=== PATIENT | male | born 1965 | race Caucasian/White ===

== ENCOUNTER 2016-11-09 18:32 | Observation (INO) | payer OTHER, MEDICAID ==
[~2016-11-09] VITALS: Ht 182.9 cm; Wt 99.7 kg
--- NOTE | 2016-11-09 18:31 | ED.REPORT ---
HPI-Chest Pain 40 and Over Date of Service Nov 09, 2016 ED Provider: Narendra Mckeon DO This is a 51 year old paraplegic male presenting to the emergency department via EMS complaining of resolved chest pain that began 8 hours ago. Pt was at [employer] when he developed sudden-onset diffuse chest pressure associated with lightheadedness. Denies SOB, change LOC, cough, nausea, vomiting , or radiation of pain. Episode resolved after 10-15 minutes and has not returned since. Pt sent from PCP at [facility] [place]. Nursing Notes Stated Complaint: CHEST PAIN Nursing Notes Reviewed: Yes Allergies: Coded Allergies: No Known Allergies (Unverified , 11/09/16) Scheduled Cyclobenzaprine (Cyclobenzaprine) 10 Mg Tablet 10 MG PO BID Docusate Sodium (Colace) 100 Mg Capsule 200 MG PO QAM Famotidine (Famotidine) 20 Mg Tablet 20 MG PO QAM Finasteride (Finasteride) 5 Mg Tablet 5 MG PO QAM Gabapentin (Gabapentin) 600 Mg Tablet 1,200 MG PO BID 8AM & MIDNIGHT Gabapentin (Gabapentin) 600 Mg Tablet 600 MG PO DAILY @ 4PM Mirtazapine (Mirtazapine) 45 Mg Tablet 45 MG PO HS Multivitamin (Multi Vitamin Daily) 1 Each Tablet 1 EACH PO DAILY Tamsulosin ER (Tamsulosin ER) 0.4 Mg Cap.er.24h 0.4 MG PO HS Venlafaxine ER (Venlafaxine ER) 150 Mg Tab.er.24 150 MG PO QAM Scheduled PRN Ibuprofen (Ibuprofen) 400 Mg Tablet 400 MG PO Q4 PRN PRN For Pain General Time Seen by MD: 18:29 Chief Complaint Chest pain Hx Obtained From: Patient Arrived By: Ambulance Sudden in Onset?: Yes Onset Occurred: 5 - 8 hours ago Symptom Duration: Since onset Severity: Current: No pain currently Severity: Maximum: Mild Pertinent Negative: Pt denies other symptoms Recent Healthcare: No recent doctor visit, No recent hospitalization Similar Sx Previous: No Past Medical History Past Medical History Paraplegia Smoking History Former Smoker Social History Alcohol Use: Denies alcohol use Drug Use: Denies drug use Ambulatory Status Walker Review of Systems Constitutional: Denies: Chills, Fever Respiratory: Denies: Non-productive cough, Shortness of breath Cardiovascular: Reports: Chest pain GI: Denies: Abdominal pain, Nausea, Vomiting Neurologic: Reports: Lightheaded, Denies: Change LOC, Headache Complete sys rev & neg: except as marked. Physical Exam Initial Vital Signs Vital Signs (First) Date Time Temp Pulse Resp B/P Pulse Ox O2 Delivery O2 Flow Rate FiO2 11/09/16 18:35 36.8 80 15 146/98 98 Room Air - Initial VS: Reviewed Head / Eyes: Atraumatic, Normocephalic, PERRL ENT: Mucous membranes moist Neck: Supple, Non-tender, Full range of motion Skin: Warm, Dry, No cyanosis Neurologic: Alert, Oriented, Nonfocal Psychiatric: Mood/affect normal, Behavior normal, Normal thought content General/Constitutional: Awake, Alert Respiratory / Chest: Breath sounds NL, Breath sounds = bilat, No respiratory distress, No rales, No rhonchi, No wheezing, No stridor, No chest tenderness Cardiovascular: Heart rate NL, Regular rhythm, Heart sounds NL, No murmurs, Peripheral circulation NL, Pulses = bilaterally, No gross BP differential Abdomen: Soft, Non-tender, McBurney's non-tender, No guarding, No rebound, BS normoactive, No distention, No hernia, No palpable mass Lower Extremity / Pelvis / MS: Vascular intact Chronic lower extremity weakness Interpretation & Diagnostics Lab Results Interpretation Result Diagram: 11/09/16183611/09/161836 Test 11/09/16 18:37 11/09/16 19:29 11/09/16 20:12 White Blood Count 8.7th/mm3 (3.8-10.1) Red Blood Count 5.05mil/mm3 (4.40-5.80) Hemoglobin 15.8g/dL (13.8-17.2) Hematocrit 44.7% (41.0-50.0) Mean Corpuscular Volume 88.5fL (81-100) Mean Corpuscular Hemoglobin 31.3pg (27.0-35.0) Mean Corpuscular Hemoglobin Concent 35.3% (32.0-37.0) Red Cell Distribution Width 14.2% (12.3-15.4) Platelet Count 183bil/L (150-400) Neutrophils (%) (Auto) 67.0% (40-74) Lymphocytes (%) (Auto) 21.6% (14-46) Monocytes (%) (Auto) 9.2% (4-12) Eosinophils (%) (Auto) 1.4% (0-5) Basophils (%) (Auto) 0.2% (0-3) Prothrombin Time 10.3sec (8.1-12.5) Prothromb Time International Ratio 0.96ratio D-Dimer < 0.50mg/L FEU (<0.50) Sodium Level 136mEq/L (134-144) Potassium Level 4.2mEq/L (3.5-5.2) Chloride Level 98mEq/L (97-108) Carbon Dioxide Level 24mmol/L (18-29) Blood Urea Nitrogen 24mg/dL (6-24) Creatinine 0.81mg/dL (0.76-1.27) Estimat Glomerular Filtration Rate 107mL/min (>59) Glucose Level 93mg/dL (60-99) Calcium Level 9.4mg/dL (8.5-10.1) Total Bilirubin 0.6mg/dL (0.0-1.2) Aspartate Amino Transf (AST/SGOT) 42U/L (0-50) Alanine Aminotransferase (ALT/SGPT) 63U/L (0-44) Alkaline Phosphatase 118U/L (25-150) Total Protein 8.0g/dL (6.4-8.4) Albumin 4.8g/dL (3.4-5.0) Hold Purple Top Tube Received (Received) Hold Blue Top Tube Received (Received) Hold Red Top Tube Received (Received) Hold [place] Top Tube Received (Received) Hold Muniz Top Tube Received (Received) Magnesium Level 2.1mg/dL (1.6-2.6) Total Creatine Kinase 615U/L (21-232) Creatine Kinase MB 13.3ng/mL (0.0-10.4) Creatine Kinase MB % 2.2% (0.0-5.0) Troponin T 0.017ug/L (0.0-0.011) ECG Interpretation ECG Interpretation: NSR at a rate of 72 Inferior infarct, q-waves inferiorly Time: 19:22 Interpreted by: ED physician X-Ray Chest Interpretation Chest Xray Interpretation: IMPRESSION: No acute cardiopulmonary disease. Dictated by: Heide Peters M.D. on 11/09/2016 at 19:26 Approved by: Heide Peters M.D. on 11/09/2016 at 19:27 Re-Eval/Medical Decision Med Decision/Clinical Course 51-year-old male presents for evaluation of chest pain. He had 15 minutes of chest pain earlier today. The pain is long since resolved. In my evaluation he had no complaints whatsoever. His examination was benign. He did have very mild hypertension. EKG showed Q waves inferiorly. No acute ST elevation or depression. First troponin and CPK and MB were elevated. We medicated with IV heparin, aspirin and topical nitrates. Consulted with cardiology and the recommendation is to transfer and this troponin raises beyond the indeterminate range considered cardiology consultation for microbiology laboratory manager. If troponin remains indeterminant then he can safely have a stress test. Case discussed with our hospitalist in this gentleman was admitted to the PCU in stable condition pain free Consultation #1: Referral / Consult Name: Charlene Olivo MD Consulted With: Cardiology Call Returned at: 19:35 Medical Librarian: Will see patient, Agrees with eval, Agrees with plan Consultation #2: Referral / Consult Name: Francois Deleon MD Consulted With: Hospitalist Call Returned at: 19:58 Medical Librarian: Accepts admit Counseled Regarding: Diagnosis, Lab results, Need for follow-up, Need for admission Discharge & Departure Primary Impression: Chest pain Chest pain type: unspecified Qualified Code: R07.9 - Chest pain, unspecified Additional Impression: Elevated troponin Disposition: ADMITTED TO HOSPITAL Discharge Condition All VS Reviewed: Yes Condition: Stable Referrals: Nieves Natarajan MD (PCP) Scribe Attestation Portions of this note were transcribed by Radha Loja. I, Dr. Mckeon personally performed the history, physical exam and medical decision-making; I reviewed and confirmed the accuracy of the information in the transcribed note. Signed by: Radha Loja. 11/09/2016, 03:00. Narendra Mckeon DO Nov 09, 2016 18:31 RADHA LOJA Nov 09, 2016 18:39
[~2016-11-09 18:32] MED LIST: 0.9% Sodium Chloride 1,000 ML IV ONE; CYCL10TA9 PO; DOCU-41 PO; FAMO20TA4 PO; FINA5TAB9 PO; GABA600T2 PO; HYDR2TAB28 PO; IBUP800T28 PO; MIRT15TA6 PO; MULT-1018 PO; OXYC5TAB72 PO; VENL150T3 PO
[2016-11-09 18:35] VITALS: BP 146/98; PULSE 80; RESP 15; O2SAT 98
[2016-11-09 18:43] LABS: BASOPHILS % (AUTO) 0.2 % (0-3); EOSINOPHILS % (AUTO) 1.4 % (0-5); MONOCYTES % (AUTO) 9.2 % (4-12); Mean Corpuscular Hemoglobin 31.3 pg (27.0-35.0); Mean Corpuscular Volume 88.5 fL (81-100); Platelet Count 183 bil/L (150-400)
[2016-11-09 19:03] LABS: D-Dimer < 0.50 mg/L FEU (<0.50); INR 0.96 ratio
[2016-11-09 19:05] LABS: TROPONIN T 0.02 ug/L (0.0-0.011)
[2016-11-09] MEDS ORDERED: Nitroglycerin 2% 1 Gm Ointment TOPICAL ONE (19:25)
--- NOTE | 2016-11-09 19:28 | DRSVH ---
PROCEDURE: X-RAY CHEST ONE VIEW, PORTABLE ([id number]) INDICATIONS: chest pain TECHNIQUE: One view of the chest was acquired. COMPARISON: None. FINDINGS: Surgical changes and devices: Lumbar spine fusion. Lungs and pleura: No pleural effusions or pneumothorax. Lungs are clear. Mediastinum: Mediastinal contours appear normal. Heart size is normal. Bones and chest wall: No suspicious bony lesions. Overlying soft tissues appear unremarkable. IMPRESSION: No acute cardiopulmonary disease. Dictated by: Heide Peters M.D. on 11/09/2016 at 19:26 Approved by: Heide Peters M.D. on 11/09/2016 at 19:27
[2016-11-09] MEDS ORDERED: Heparin 25K Unit/500mL 0.45 NS 25,000 UNIT in IV Premix 1 EACH IV SCH (19:40)
[2016-11-09] MEDS ORDERED: Heparin Initial Bolus IVPUSH ONE (19:50)
[2016-11-09] MEDS ORDERED: Polyethylene Glycol (PEG) 17 Gm Powder PO PRN (20:10)
[2016-11-09] MEDS ORDERED: Alum-Mag Hydrox-Simeth 30 mL Suspension PO PRN (20:10)
[2016-11-09] MEDS ORDERED: Senna-Docusate 8.6-50 mg Tablet PO PRN (20:10)
[2016-11-09] MEDS ORDERED: Ondansetron 2 mg/mL 2 mL Inj IVPUSH PRN (20:10)
[2016-11-09] MEDS ORDERED: Atropine 1 mg/10 mL (Code) Syringe IVPUSH PRN (20:10)
[2016-11-09] MEDS ORDERED: GABA600T2 PO (20:22)
[2016-11-09] MEDS ORDERED: IBUP400T22 PO (20:22)
[2016-11-09] MEDS ORDERED: TAMS0.4C98 PO (20:22)
[2016-11-09] MEDS ORDERED: MIRT45TA5 PO (20:24)
[2016-11-09] MEDS ORDERED: TAMS0.4C29 PO (20:24)
[2016-11-09 20:51] LABS: TROPONIN T 0.017 ug/L (0.0-0.011)
[2016-11-09 20:56] LABS: Magnesium 2.1 mg/dL (1.6-2.6)
[2016-11-09] MEDS: 0.9% Sodium Chloride 1,000 ML IV SCH (20:58)
[2016-11-09 23:07] VITALS: BP 123/80; PULSE 80; RESP 20; O2SAT 97
[2016-11-09 23:10] VITALS: BP 115/67; PULSE 77; RESP 14; O2SAT 97
[2016-11-10] VITALS (14 sets, daily range): BP systolic 98–134; BP diastolic 58–79; PULSE 65–82; RESP 15–19; O2SAT 94–98
--- NOTE | 2016-11-10 00:25 | PCM.HPMED ---
Subjective Date of Service Nov 09, 2016 Primary Provider: Admitting Physician: Primary Care Physician: Nieves Natarajan MD Attending Physician: Admit Status: From the Emergency Department, 23-Hour Observation, [facility] Telemetry Chief Complaint: Chest pain History of Present Illness: Mj Hood is a 51 year old paraplegic male with BPH, Depression presenting to the emergency department via EMS complaining of resolved chest pain that began 8 hours ago. Pt was at [employer] when he developed sudden-onset, mid sternal chest pressure associated with lightheadedness. Denies any associated symptoms like diaphoresis, nausea, vomiting. Episode resolved after 10-15 minutes and has not returned since. No similar episode prior. 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 He is able to walk but with a walker, right foot is unstable. Case discussed with Dr Mckeon. EKG showed no ischemia. Due to persistent chest pain, Heparin drip was initiated. Dr Mckeon spoke to Dr Olivo who recommended admission. Review of Systems: Pertinent positives as noted in HPI. All other systems were reviewed and are negative Allergies Coded Allergies: No Known Allergies (Unverified , 11/09/16) Home Medications From [facility], not yet confirmed Mj Vogel [id number] 1965 07/20/2016 01:20 PM Page: 09/20 cyclobenzaprine 10 mg tablet take 1 tablet by oral route 2 times every day docusate sodium 100 mg capsule take 1 capsule by oral route 2 times every day at bedtime as needed famotidine 20 mg tablet take 1 tablet by oral route every day finasteride 5 mg tablet take 1 tablet by oral route every day gabapentin 600 mg tablet 1 tab PO 5 times daily hydromorphone 2 mg tablet take 1 tablet by oral route every 4 - 6 hours as needed ibuprofen 800 mg tablet take 1 tablet by oral route 3 times every day with food mirtazapine 15 mg tablet take 1.5 tablet by oral route every day multivitamin tablet take 1 tablet by oral route every day with food oxycodone 5 mg tablet take 1 tablet by oral route once daily tamsulosin 0.4 mg capsule take 1 Capsule by oral route every day at night venlafaxine ER 150 mg tablet,extended release 24 hr take 1 tablet by oral route every day in the morning at the same time each day with food PMH BPH Depression Incomplete paraplegia after falling accident . Surgical History Right Achilles tendon repair Family History No family history of premature coronary disease Social History Hx Alcohol Use: No (QUIT 1983) Hx Substance Use: No Hx Tobacco Use: Yes Smoking Status: Former Smoker Living Arrangement: with Family Exam Vital Signs Vital Sign - Last Date Time Temp Pulse Resp B/P Pulse Ox O2 Delivery O2 Flow Rate FiO2 11/09/16 18:35 36.8 80 15 146/98 98 Room Air Exam General: Alert, Oriented X3, Cooperative, No acute Distress Eyes: PERRLA, Scleral Anicteric Mouth: Mouth Normal, Mucous Membranes Moist/[place] Neck: Supple, no Thyromegaly, trachea central. Chest & Lungs: Clear to auscultation & percussion, No adventitious breath sounds, no crackles, no wheeze Cardiovascular: Normal S1, Normal S2, No Murmurs/Rubs/Gallops, Regular Rate/ Rhythm, (No JVD, no peripheral edema) Pulses: Radial (present and equal), Dorsalis Pedi (present and equal) Abdomen: Soft, Non-tender, Non-distended, Normoactive bowel tones. Musculoskeletal: Unremarkable. Normal range of motion, no swollen or erythematous joints Extremities: No edema, no cyanosis, no clubbing. Skin: No rashes. Warm and dry, no erythematous areas Neurological: Grossly neurologically intact, Normal Speech, Sensation Intact Lymphatic: Lymph nodes Cervical and Axillary not palpable. Lab and Diagnostics Labs Laboratory Tests Test 11/09/16 18:37 11/09/16 19:29 11/09/16 20:12 White Blood Count 8.7th/mm3 (3.8-10.1) Red Blood Count 5.05mil/mm3 (4.40-5.80) Hemoglobin 15.8g/dL (13.8-17.2) Hematocrit 44.7% (41.0-50.0) Mean Corpuscular Volume 88.5fL (81-100) Mean Corpuscular Hemoglobin 31.3pg (27.0-35.0) Mean Corpuscular Hemoglobin Concent 35.3% (32.0-37.0) Red Cell Distribution Width 14.2% (12.3-15.4) Platelet Count 183bil/L (150-400) Neutrophils (%) (Auto) 67.0% (40-74) Lymphocytes (%) (Auto) 21.6% (14-46) Monocytes (%) (Auto) 9.2% (4-12) Eosinophils (%) (Auto) 1.4% (0-5) Basophils (%) (Auto) 0.2% (0-3) Prothrombin Time 10.3sec (8.1-12.5) Prothromb Time International Ratio 0.96ratio D-Dimer < 0.50mg/L FEU (<0.50) Sodium Level 136mEq/L (134-144) Potassium Level 4.2mEq/L (3.5-5.2) Chloride Level 98mEq/L (97-108) Carbon Dioxide Level 24mmol/L (18-29) Blood Urea Nitrogen 24mg/dL (6-24) Creatinine 0.81mg/dL (0.76-1.27) Estimat Glomerular Filtration Rate 107mL/min (>59) Glucose Level 93mg/dL (60-99) Calcium Level 9.4mg/dL (8.5-10.1) Magnesium Level 2.0mg/dL (1.6-2.6) Total Bilirubin 0.6mg/dL (0.0-1.2) Aspartate Amino Transf (AST/SGOT) 42U/L (0-50) Alanine Aminotransferase (ALT/SGPT) 63U/L (0-44) Alkaline Phosphatase 118U/L (25-150) Troponin T 0.020ug/L (0.0-0.011) Total Protein 8.0g/dL (6.4-8.4) Albumin 4.8g/dL (3.4-5.0) Hold Purple Top Tube Received (Received) Hold Blue Top Tube Received (Received) Hold Red Top Tube Received (Received) Hold [place] Top Tube Received (Received) Hold Muniz Top Tube Received (Received) Result Diagram: 11/09/16183611/09/[id number] X-Rays, CTs and MRIs X-RAY CHEST ONE VIEW, PORTABLE 11/09 IMPRESSION: No acute cardiopulmonary disease. Dictated by: Heide Peters M.D. on 11/09/2016 at 19:26 Approved by: Heide Peters M.D. on 11/09/2016 at 19:27 Assessment & Plan Mj Hood is a 51 year old paraplegic male with BPH, Depression presenting to the emergency department via EMS complaining of chest pain 1. Acute Chest pain with possible Unstable Angina. Present on admission Slightly elevated troponin makes NSTEMI possible but will need to trend. Risk factors for Acute coronary syndrome includes age, sex, previous smoker Differential diagnosis includes Pulmonary embolism (D dimer negative), GERD, Musculoskeletal pain - trending cardiac biomarkers - monitor on telemetry - complete echo - anticoagulation with Heparin (cardiac protocol) - antiplatelet therapy with Aspirin and Plavix (300 mg loading then 75 mg daily) - if troponin negative will get stress test - if troponin positive then possible cardiac catheterization - Cardiology consultation in the morning 2. Benign Prostatic Hypertrophy. Chronic No urinary symptoms - continuing Flomax and Finasteride 3. Depression Mood stable - continuing Venlafaxine and Mirtazepine 4. Paraplegia, incomplete, chronic - continuing Gabapentin as scheduled - Acetaminophen as needed for mild pain/fever/headache - Bowel regimen as needed - Antiemetic as needed Patient is admitted under observation status with expected length of stay less than 2 midnights due to severity of presenting symptoms, risk of adverse event, and complexity of treatment plan. . Resuscitation Status: CPR: Attempt Resuscitation Francois Deleon MD Nov 09, 2016 20:10
[2016-11-10] MEDS: Sodium Chloride LOK Flush 10 mL Syringe IVFLUSH SCH ×3 (00:30→16:29)
[2016-11-10 02:24] LABS: TROPONIN T 0.04 ug/L (0.0-0.011)
[2016-11-10] MEDS: Heparin 5,000 Unit/mL Inj IVPUSH PRN ×2 (03:04→10:11)
--- NOTE | 2016-11-10 06:32 | NUR ---
Admit Admitted to 3017 from ED via stretcher. Able to ambulate on arrival with personal walker, SBA and right ankle splint in place. Slow steady gait noted. Per patient no motor movement in left foot but full sensation. Tele SR w/o c/o CP. RA w/o SOB. Tolerating PO intake w/o n/v. NPO @ midnight per orders. NS @ 80ml/hr and heparin gtt infusing per orders. Personal belongings at bedside per patient request. Oriented to call light use with return demonstration.
[2016-11-10 07:06] LABS: BASOPHILS % (AUTO) 0.3 % (0-3); EOSINOPHILS % (AUTO) 2.2 % (0-5); Mean Corpuscular Hemoglobin 31.3 pg (27.0-35.0); Mean Corpuscular Volume 89.7 fL (81-100); NEUTROPHILS % (AUTO) 54.9 % (40-74); Platelet Count 146 bil/L (150-400)
[2016-11-10] MEDS ORDERED: Venlafaxine XR 75 mg ER24 Capsule PO SCH (08:30)
[2016-11-10] MEDS: 0.9% Sodium Chloride 1,000 ML IV SCH (08:54)
--- NOTE | 2016-11-10 10:00 | CONS ---
[address] [address] CONSULTATION REPORT PATIENT: JAILENE SMITH : 1965 MR#: [id number] ADMIT: 11/09/2016 JOB ID: [id number] DATE OF SERVICE: 11/10/2016 CARDIOLOGY CONSULTATION: REASON FOR CONSULT: For the evaluation of chest pain, abnormal troponin. CHIEF COMPLAINT: Chest pain. PRESENT HISTORY: This 51-year-old pleasant male who has an incomplete paraplegia due to ladder fall, history of depression, BPH, ex-smoker got admitted through the emergency department because of above-mentioned chief complaint. According to the patient, yesterday morning he was at [employer] walking with the help of walker and felt chest tightness. It was associated with lightheadedness without any nausea, vomiting, diaphoresis or significant shortness of breath. It lasted about 10-15 minutes. It was not very intense. No radiation. It subsided by itself. Then, he went to see he is physiotherapist. He continued to have lightheadedness. He was advised to talk with PCP where he was seen and EKG was done which was abnormal. Hence he was sent to the ED. In the hospital, his troponin is abnormal. Hence Cardiology consult was sought. At present, he is lying on bed. He is not having any active chest pain or shortness of breath or PND, orthopnea or bleeding or stroke-like symptoms. The patient denies previous history of myocardial infarction, congestive heart failure, rheumatic heart disease or congenital heart disease or family history of premature coronary artery disease. He is not sure about high blood pressure or hyperlipidemia. However, when he was at his physiotherapist his blood pressure was 190/110. The patient denies any fever, cough, expectoration or claudication. PAST MEDICAL HISTORY: 1. History of incomplete paraplegia after a falling accident. 2. Depression. 3. BPH. 4. Recently found elevated blood pressure. PAST SURGICAL HISTORY: Right Achilles tendon repair. FAMILY HISTORY: No family history of premature coronary artery disease. SOCIAL HISTORY: Denies any alcohol abuse. He is an ex-smoker but currently is not smoking. ALLERGIES: Denies any allergies. MEDICATIONS AT HOME: 1. Cyclobenzaprine 10 mg 2 times a day. 2. Famotidine 20 mg daily. 3. Finasteride 5 mg daily. 4. Gabapentin 600 mg 1 tablet five times daily. 5. Hydromorphone 2 mg every 4-6 hours as needed. 6. Ibuprofen 800 mg three times a day. 7. Mirtazapine 50 mg 1-1/2 tablets daily. 8. Multivitamin. 9. Oxycodone 5 mg daily. 10. Venlafaxine ER 150 mg daily. 11. Tamsulosin 0.4 mg at night. REVIEW OF SYSTEMS: Ten point review of systems were obtained and negative except as stated above. PHYSICAL EXAMINATION: His blood pressure 98/58 to 146/98, heart rate 78, respiratory rate 18, oxygen saturation 95% and no significant anemia, jaundice. Neck: No apparent JVP or carotid bruit. Chest: No obvious crepitation or rhonchi. CVS: S1, S2 normal. No S3, no S4. No significant murmur. Abdomen: No pulsatile mass. No obvious hepatosplenomegaly. Extremities: No significant pedal edema. MARKETING GRAPHICS SPECIALIST: The patient has weakness in both lower extremities as well as there is a contracture of the right foot. Vascular: No evidence of critical limb ischemia. LABORATORIES: Sodium 140, potassium 4.1, BUN 21, creatinine 0.82. Magnesium 2.1. CPK 615 and repeat 463. MB 13.3, repeat 9.3. Troponin T 0.017 and 0.040. Triglycerides 198, total cholesterol 194, LDL 120, HDL 34, hemoglobin 13.3 upon admission. Hemoglobin 15.8. The patient receiving fluid. Platelets from 183-146. INR 0.96 and D-dimer less than 0.5. X-ray chest: No acute cardiopulmonary disease. EKG on November 14, 2016 at 7:13 p.m. revealed sinus rhythm with QRS complexes L3, aVF, poor R-wave progression and nonspecific ST-T changes. QTc 391 msec. Repeat EKG this morning, no new significant ST-T changes. ASSESSMENT AND PLAN: Acute coronary syndrome with likely non ST elevation myocardial infarction with increased and fall in CPK MB as well as rising troponin. On EKG there are QS complexes in inferior leads with elevated blood pressure, history of incomplete paraplegia and other problems as stated above. At present, he is chest pain free. Clinically, he appears compensated. He is not in heart failure. His QTc is not prolonged. Discussed with the pt. further cardiac workup including left heart catheterization in anticipation of revascularization. Benefits and risks of left heart catheterization which include, but not limited to, risk of bleeding, groin complication, myocardial infarction, stroke, , renal insufficiency, and peripheral vascular complication, etc. in detail discussed with the patient. He verbalizes understanding. Meanwhile, we will recommend continuation of medical treatment with dual antiplatelet therapy, anticoagulation, tolerable dose of beta toya, high intensity statin as well as consideration of RUBINA inhibitor if blood pressure permits. Get echocardiogram as well. He denies any active bleeding. Repeat his electrolytes and CBC. Further plan will be based on the result of above-mentioned diagnostic tests and his hospital course. Discussed the plan with the patient and hospitalist team. They agreed and concurred. Thanks for the cardiology consult. RUIZ
[2016-11-10] MEDS ORDERED: diphenhydrAMINE 25 mg Capsule PO ONE (10:30)
--- NOTE | 2016-11-10 10:52 | NUR ---
Social Work: Screening Data: Pt is a 51 y/o male admitted for chest pain/elevated trop. Pt's PCP is Dr Natarajan, pt's insurance is [employer] blind/disabled. EMR reviewed. No d/c planning needs identified at this time. MARINE FIRER will continue to follow if needs arise. Assessment: Pt who is independent at baseline. Plan: Pt will d/c home via POV when medically stable. No d/c planning needs identified at this time. MARINE FIRER will continue to follow if needs arise. CONSTANZA Evans
[2016-11-10] MEDS ORDERED: Heparin 1,000 Unit/mL 10 mL Inj ONE (12:09)
[2016-11-10] MEDS ORDERED: Heparin 1,000 Units/500 mL NS Premix IV ONE (12:09)
[2016-11-10] MEDS ORDERED: 0.9% Sodium Chloride 2,000 ML ONE (12:09)
--- NOTE | 2016-11-10 12:41 | NUR ---
Heart Cath Cardiology consult this AM. New orders for heart cath today. Heparin gtt stopped prior to procedure by provider. 2nd IV placed. Bathed with chlorhexidine wipes. Pedal pulses marked. Confirmed consent in chart. Visitor at bedside.
[2016-11-10] MEDS ORDERED: fentaNYL-PF 50 mCg/mL 2 mL Inj ONE (13:19)
--- NOTE | 2016-11-10 13:45 | DRSVH ---
[facility] [address] [place] [address] Echocardiogram Report Name: JAILENE SMITH Study Date: 11/10/2016 Height: 72 in Hospital Exam Location: [facility] Weight: 228 lb Gender: Male BSA: 2.3 m2 : 1965 Age: 51 yrs BP: 98/58 mmHg Reason For Study: CHEST PAIN Ordering Physician: HOSPITALIST [facility] Performed By: Jordy Prieto Referring Physician: Dr. Nieves Natarajan Interpretation Summary The left ventricle is normal in size. The ejection fraction is estimated to be 60-65%. The right ventricle is normal in size and function. No significant valvular pathology seen. Procedure: A two-dimensional transthoracic echocardiogram with color flow and Doppler was performed. The study quality was technically adequate. There is no prior echocardiogram noted for this patient. A contrast injection of Definity was performed to improve assessment of LV function. The patient was in normal sinus rhythm during the exam. Left Ventricle: The left ventricle is normal in size. There is normal left ventricular wall thickness. There is no thrombus. The ejection fraction is estimated to be 60-65%. There are no focal wall motion abnormalities. Spectral Doppler of the mitral valve shows a normal E/A wave ratio. Right Ventricle: The right ventricle is normal in size and function. Atria: Both atria are normal in size. The interatrial septum is intact with no evidence for an atrial septal defect. Mitral Valve: The mitral valve is normal in structure and function. There is trace mitral regurgitation. Aortic Valve: The aortic valve is trileaflet. The aortic valve opens well. There is no aortic valve stenosis. There is trace aortic regurgitation. Tricuspid Valve: The tricuspid valve is normal in structure and function. There is trace tricuspid regurgitation. The right ventricular systolic pressure is estimated at 29 mmHg assuming a right atrial pressure of 3 mm Hg. Pulmonic Valve: The pulmonic valve is normal in structure and function. There is trace pulmonic regurgitation. Great Vessels: The aortic root is normal size. The dimensions of the ascending aorta are normal. The pulmonary artery is normal size. The IVC is of normal diameter and collapses greater than 50% with a sniff. This suggests a low right atrial pressure of 3 mm Hg. Pericardium/ Pleura There is no pericardial effusion. There is an anterior echo-free space consistent with a fat pad. There is no pleural effusion. MMode/2D Measurements & Calculations LVIDd: 5.0 cm LA dimension: 3.4 cm RA long axis LVOT diam: 2.2 cm LVIDs: 3.0 cm Ao root diam FS: 40.1 % LA A2 area: 16.2 cm RA area EPSS: 0.71 cm LA A4 area: 22.6 cm Aortic Jxn: 2.5 cm IVSd: 0.90 cm LA length (vol) : 14.7 cm asc Aorta Diam LVPWd: 0.79 cm RA vol LA vol: 51.1 ml : 43.8 ml Ao Arch Diam (Prox LA vol index RA Trans): 2.8 cm : 19.5 mm2 IVC diam: 1.5 cm LV oviedo. diameter/BSA LV sys. diameter/BSA RVD1 (basal) RVD2 (mid): 3.6 cm (cm/m^2): 2.2 (cm/m^2): 1.3 Doppler Measurements & Calculations Ao V2 max MV E max ashwin MV E/A: 1.2 TR max ashwin : 147.0 cm/sec : 97.3 cm/sec Med Peak E' Ashwin : 255.9 cm/sec Ao max P.6 mmHg MV A max ashwin TR max PG Ao mean P.6 mmHg : 81.2 cm/sec E/E' med: 13.3 : 26.2 mmHg LVOT Max Ashwin Lat Peak E' Ashwin PA V2 max : 113.9 cm/sec : 93.7 cm/sec E/E' lat: 9.4 PA mean PG APRIL(I,D): 3.1 cm E/e' average sev ratio: 0.80 PA Accel Time Pulm A Revs Dur : 0.06 sec MV A dur : 0.11 sec MV dec time Ao V2 mean LV V1 max PG PA V2 mean : 0.15 sec : 103.6 cm/sec : 68.9 cm/sec Ao V2 VTI: 30.7 cm LV V1 VTI PA pr(Accel) : 24.6 cm : 51.6 mmHg APRIL(V,D): 3.0 cm2 APRIL indexed to BSA Pulm Alecia Revs Dur - MV A (cm^2/m^2): 1.4 Dur: -0.01 msec Reading Physician:DEDRA
--- NOTE | 2016-11-10 14:45 | CS94 ---
[address] [address] DIAGNOSTIC CARDIAC CATHETERIZATION PATIENT: JAILENE SMITH : 1965 MR#: [id number] ADMIT: 11/09/2016 JOB ID: [id number] SERVICE DATE: 11/10/2016 INDICATION: This 51-year-old male presented with chest pain and ruled in for acute coronary syndrome and non ST elevation myocardial infarction based on abnormal serial CPK, troponin. Left heart catheterization was suggested. Benefits and risks, which include, but not limited to, risk of bleeding, groin complication, myocardial infarction, stroke, , renal insufficiency, and peripheral vascular complication, etc. in detail discussed with the patient. He verbalizes understanding. All the questions were answered. An informed consent was obtained. AMBULATORY TECHNOLOGIST: Dr. Leo Nava. PROCEDURES: 1. Left heart catheterization. 2. Coronary arteriography. 3. Left ventricular pressure measurement. DESCRIPTION OF PROCEDURE: Right groin was cleaned, prepped, and draped in the usual sterile fashion. The skin and subcutaneous tissue was anesthetized with 1% lidocaine. Right femoral artery was accessed. A 6-Palestinian sheath was introduced into the right femoral artery using modified Seldinger technique. Please note that this patient has a normal left circumflex artery from right coronary cusp with separate ostium. Left coronary artery was engaged with 6-Palestinian JL4 and both dominant right coronary artery as well as anomalous circumflex was engaged with 6-Palestinian JR4 catheter. Left ventricular pressure measurement was done with 6-Palestinian pigtail catheter. All the catheters were advanced over the guidewire and flushed with heparinized saline. Multiple standard projections were obtained. All the exchanges were made over the guidewire. The patient tolerated the procedure well. Total 85 cc Isovue-370 dye was used. There was no immediate complication. Hemostasis will be achieved by manual compression. HEMODYNAMICS: LV systolic pressure was 121 mmHg. Aortic pressure 121/71 mmHg. There was no significant pullback gradient between the aorta and left ventricle. LVEDP was about 18 mmHg. LEFT VENTRICULOGRAPHY: Left ventriculography was not performed. On 2D echo the patient has preserved LV function. 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 The left main and LAD appears to be same vessel. LAD is a tortuous vessel. There is no significant coronary artery disease seen in the left side coronary artery circulation. Right coronary artery: The right coronary artery is a large dominant artery and was free of any significant disease. Left circumflex artery: The left circumflex artery arises from the right coronary cusp through separate ostium and it is a nondominant vessel and was free of any significant disease. 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 Left circumflex anomaly from right coronary cusp is usually a benign anomaly usually posterior to the aorta. There are no significant atherosclerotic plaque or calcification. No pressure drop during LCX engagement. From cardiac perspective at this point of time, recommend medical management, risk factor modification. If clinical suspicion of PE, consider PE workup. RUIZ
--- NOTE | 2016-11-10 15:17 | PCM.PNMED ---
Subjective Date of Service Nov 10, 2016 Subjective Patient is a 51 year old paraplegic male with BPH, Depression presenting to the emergency department via EMS complaining of chest pain. Admitted to rule out ME. Hospital day #1. No acute overnight events. Patient is then comfortably in bed. He denies current chest pain, shortness of breath, diaphoresis, dizziness, nausea/ vomiting. Exam Vital Signs Vital Sign - Last Date Time Temp Pulse Resp B/P Pulse Ox O2 Delivery O2 Flow Rate FiO2 11/10/16 14:00 77 15 122/73 94 Room Air 11/10/16 09:33 36.6 Intake and Output 11/09/16 11/09/16 11/10/16 Cumulative From/Thru 15:00 23:00 07:00 11/09/16 19:38 - 11/10/16 05:59 Intake Total 850 ml 850 ml Balance 850 ml 850 ml IV Total 850 ml 850 ml Exam General: Alert, Oriented X3, Cooperative, No acute Distress Eyes: PERRLA, Scleral Anicteric Mouth: Mouth Normal, Mucous Membranes Moist/Jeddo Neck: Supple, no Thyromegaly, trachea central. Chest & Lungs: Clear to auscultation & percussion, No adventitious breath sounds, no crackles, no wheeze Cardiovascular: Normal S1, Normal S2, No Murmurs/Rubs/Gallops, Regular Rate/ Rhythm, (No JVD, no peripheral edema) Pulses: Radial (present and equal), Dorsalis Pedi (present and equal) Abdomen: Soft, Non-tender, Non-distended, Normoactive bowel tones. Musculoskeletal: Unremarkable. Normal range of motion, no swollen or erythematous joints Extremities: No edema, no cyanosis, no clubbing. Skin: No rashes. Warm and dry, no erythematous areas Neurological: Grossly neurologically intact, Normal Speech, Sensation Intact Lymphatic: Lymph nodes Cervical and Axillary not palpable. IVs and Medications Medications Reviewed: Medications were reviewed in detail Lab and Diagnostics Result Diagram: 11/10/16 0850 11/10/16 0625 X-Rays, CTs and MRIs X-RAY CHEST ONE VIEW, PORTABLE 11/09 IMPRESSION: No acute cardiopulmonary disease. Dictated by: Heide Peters M.D. on 11/09/2016 at 19:26 Approved by: Heide Peters M.D. on 11/09/2016 at 19:27 Cardiac Echo Impressions Echocardiogram Report Interpretation Summary The left ventricle is normal in size. The ejection fraction is estimated to be 60-65%. The right ventricle is normal in size and function. No significant valvular pathology seen. Reading Physician:PM Assessment & Plan Mj Hood is a 51 year old paraplegic male with BPH, Depression presenting to the emergency department via EMS complaining of chest pain. 1. NSTEMI Risk factors for Acute coronary syndrome includes age, sex, previous smoker - Elevated cardiac biomarkers, cardiology consulted, patient will be going to [employer] maintenance [employer] today - Anticoagulation with Heparin drip (cardiac protocol) - Antiplatelet therapy with Aspirin and Plavix (300 mg loading then 75 mg daily) - Normal echo 2. Benign Prostatic Hypertrophy. Chronic No urinary symptoms - continuing Flomax and Finasteride 3. Depression Mood stable - continuing Venlafaxine and Mirtazepine 4. Paraplegia, incomplete, chronic - continuing Gabapentin as scheduled - Acetaminophen as needed for mild pain/fever/headache - Bowel regimen as needed - Antiemetic as needed Pain Evaluation: Adequate Pain Control GI Prophylaxis: H2 toya, Not indicated VTE Prophylaxis: Other (Heparin drip) Resuscitation Status: CPR: Attempt Resuscitation Attending Statement The patient was seen and examined together with Dr. Oviedo on 11/10/2016 and I agree with the history, exam and plan as outlined in the note above. Ladonna Oviedo DO Nov 10, 2016 15:17 Natanael Reich MD Nov 11, 2016 13:35 Ladonna Oviedo DO Nov 10, 2016 15:17
[2016-11-10] MEDS ORDERED: Atropine 1 mg/10 mL (Code) Syringe IVPUSH PRN (16:15)
[2016-11-10] MEDS ORDERED: 0.9% Sodium Chloride 250 ML BOLUS IV PRN (16:15)
[2016-11-10] MEDS ORDERED: 0.9% Sodium Chloride 400 ML (4 HRS) IV ONE (16:15)
[2016-11-10] MEDS ORDERED: Sodium Chloride LOK Flush 10 mL Syringe IVFLUSH PRN (16:15)
--- NOTE | 2016-11-10 16:37 | NUR ---
Transfer from [facility] to [facility] pt. post heart cath recovered in [facility]; right groin site soft, nontender, no s/sx hematoms; biooclusive over site, very min sero sanguinous drainage noted, unchanged; ppp. Denied cp or pressure, denied groin pain; refused any prn pain medications. Vitals stable. Report called to Michaela Edwards RN; transported via bed to [facility] 3017 with family at bedside.
[2016-11-11] MEDS: Sodium Chloride LOK Flush 10 mL Syringe IVFLUSH SCH (00:31)
[2016-11-11 01:02] VITALS: BP 126/76; PULSE 74; RESP 20; O2SAT 97
--- NOTE | 2016-11-11 03:14 | NUR ---
Uneventful Night pt has been able to sleep during the night with minimal interruptions. pt has denied pain. VSS, afebrile, on RA. groin site has no hematoma or eccymosis at this time, bioclusive dressing C/D/I. IV SL, patent when flushed. Hydrodynamics Teacher in room to complete bilat LE venous doppler, reported "No DVT" to RN, stated report will be read "in the morning". pt using call light to make needs known, placed within reach, hourly rounding in effect.
[2016-11-11 04:54] VITALS: PULSE 65
[2016-11-11 06:20] VITALS: BP 110/73; PULSE 63; RESP 20; O2SAT 96
[2016-11-11 06:42] LABS: BASOPHILS % (AUTO) 0.2 % (0-3); MONOCYTES % (AUTO) 11.8 % (4-12); Mean Corpuscular Hemoglobin 31.3 pg (27.0-35.0); Mean Corpuscular Volume 90.2 fL (81-100); NEUTROPHILS % (AUTO) 55.3 % (40-74); Platelet Count 151 bil/L (150-400)
[2016-11-11 08:00] VITALS: PULSE 80
[2016-11-11] MEDS ORDERED: Venlafaxine XR 75 mg ER24 Capsule PO SCH (08:30)
--- NOTE | 2016-11-11 08:30 | DRSVH ---
PROCEDURE: US VENOUS LEG DUPLEX BILATERAL INDICATIONS: LE pain TECHNIQUE: Real-time imaging, as well as color and pulse Doppler interrogation, were performed of the deep veins of both legs from the inguinal ligament to the popliteal fossa. COMPARISON: None. FINDINGS: The deep veins are normally compressible, and free of intraluminal thrombus. Color and pu lse Doppler demonstrate normal phasic intravascular flow. There is normal augmentation response to d istal compression maneuver. IMPRESSION: No DVT found over either lower extremity. Dictated by: Montana Bowen M.D. on 11/11/2016 at 8:27 Approved by: Montana Bowen M.D. on 11/11/2016 at 8:28
--- NOTE | 2016-11-11 10:07 | PROG NOTE ---
[address] [address] PROGRESS NOTE PATIENT: JAILENE SMITH : 1965 MR#: [id number] ADMIT: 11/09/2016 JOB ID: [id number] DATE: 11/11/2016 SUBJECTIVE: The patient lying on bed. He is not having any more chest pain. Denies any PND, orthopnea, palpitation or right groin bleed. In summary, this 51-year-old pleasant male who has an incomplete paraplegia due to ladder fall, history of depression, BPH, ex-smoker presented with chest pain. He ruled in for acute coronary syndrome with non ST-T NV based on abnormal serial CPK and troponin. He underwent left heart catheterization yesterday which did not reveal any obvious atherosclerotic coronary artery disease. He has a normal left circumflex which arises from the right coronary cusp with separate ostium than right coronary artery. No pressure dampening. No significant atherosclerotic plaque or focal narrowing of the anomalous circumflex or right coronary artery or LAD. On 2D echo, LV ejection fraction 60%-65% with normal right ventricular function without any focal wall motion abnormalities without any significant valvular pathology or pericardial effusion. OBJECTIVE: Blood pressure 110/73, heart rate 63, respiratory rate 18-20, oxygen saturation 96%. In the night time, the patient had episode of sinus tachycardia, rate about 120. No obvious ventricular tachycardia seen. LABORATORIES: Hemoglobin 14.3, platelets 151. Sodium 144, potassium 4.1, BUN 17, creatinine 0.88. Total bilirubin 0.6. AST 29, ALT 45. His peak CPK was 615, came down to 463 and troponin T 0.051. Triglycerides 198, total cholesterol 194, LDL 120, HDL 34. ASSESSMENT/PLAN: Chest pain with abnormal CPK troponin suggestive of acute coronary syndrome. However, on left heart catheterization, no obvious atherosclerotic coronary artery disease seen. The patient has anomalous left circumflex artery which arises from the separate ostium from the right cusp. No pressure dampening. Usually the anomalous left circumflex artery has a benign prognosis. He has a lower extremity venous Doppler which is negative for DVT. D-dimer was normal. hence very low suspicion for pulmonary embolism. Right ventricular function is normal. One of the possibility of vessel spasm, however, during telemetry monitoring, we are not seeing any transient ST elevation. He does not have any significant QTc prolongation. Another differential diagnosis of plaque rupture and spontaneous thrombolysis. However, I do not see any obvious atherosclerotic plaque. Hence, at this point of time, we do not have any obvious explanation. However, his LV function is preserved. Overall, at present, he is low risk. We did not see any significant ventricular arrhythmias. His transient episode of sinus tachycardia could be labile phenomena due to spine injury. At this point of time, will recommend risk factor modification. He does not need dual anti-platelet therapy. Consider aspirin 81 mg daily. Consider lipid management. The patient will be seen closely in resident clinic. If he complains of palpitations, provide him long-term Holter monitor. Groin care explained to the patient. At present, groin looks okay. No obvious hematoma or pulsatile mass. At this point of time, Cardiology service will sign off. Discussed the plan with resident, Dr. Oviedo, taking care of this patient. TOTAL TIME SPENT: Today about 35 minutes. RUIZ
--- NOTE | 2016-11-11 10:24 | PCM.DIMED ---
Ladonna Oviedo DO 11/11/16 1024: Discharge Instructions Date of Service Nov 11, 2016 Dates of Hospitalization Nov 09, 2016 at 20:37 Discharge Diagnosis Discharge Diagnosis 1. Acute Chest pain with possible Unstable Angina. Present on admission. Resolved. 2. Benign Prostatic Hypertrophy. Chronic. 3. Depression. Chronic. Stable. 4. Paraplegia, incomplete. Chronic. Medication Instructions 1. Take Aspirin, 81 mg daily. 2. Take Atorvastatin, 20 mg daily. Test Results X-RAY CHEST ONE VIEW, PORTABLE 11/09 IMPRESSION: No acute cardiopulmonary disease. Dictated by: Heide Peters M.D. on 11/09/2016 at 19:26 Approved by: Heide Peters M.D. on 11/09/2016 at 19:27 Cardiac Echo Impressions Echocardiogram Report Interpretation Summary The left ventricle is normal in size. The ejection fraction is estimated to be 60-65%. The right ventricle is normal in size and function. No significant valvular pathology seen. 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 The left main and LAD appears to be same vessel. LAD is a tortuous vessel. There is no significant coronary artery disease seen in the left side coronary artery circulation. Right coronary artery: The right coronary artery is a large dominant artery and was free of any significant disease. Left circumflex artery: The left circumflex artery arises from the right coronary cusp through separate ostium and it is a nondominant vessel and was free of any significant disease. Leo Nava MD 11/10/16 1412 Diet Heart Healthy Activity No restrictions Call your provider Fever or Chills, Shortness of breath, Bleeding, Chest pain, Vomitting, Excessive diarrhea, Weakness (unilateral) Patient Instructions Follow-up Provider: Nieves Natarajan MD Follow-up with PCP in: 2 weeks Additional Information If heart palpitation continues, please see your PCP to discuss [facility] Holter monitor. Natanael Reich MD 11/11/16 1335: Ladonna Oviedo DO Nov 11, 2016 10:24 Natanael Reich MD Nov 11, 2016 13:35
[2016-11-11] MEDS ORDERED: ASPI-973 PO (10:27)
[2016-11-11] MEDS ORDERED: ATOR20TA PO (10:28)
--- NOTE | 2016-11-11 10:51 | NUR ---
Social Work: Discharge Data: Pt is on day 2 of hospitalization. EMR reviewed, pt discussed in rounds. D/C orders are in. No further d/c planning needs identified at this time. [employer] REPA[employer] will continue to follow if needs arise. Assessment: Pt who is independent at baseline. Plan: Pt will d/c home via POV today. No further d/c planning needs identified at this time. PIPE ORGAN T[employer]ER AND REPAIRER will continue to follow if needs arise. CONSTANZA Evans
--- NOTE | 2016-11-11 10:52 | PCM.DC.MED ---
Discharge Summary Date of Service Nov 11, 2016 Dates of Hospitalization Date of Hospital Admission Nov 09, 2016 at 20:37 Date of Discharge: Nov 11, 2016 Providers: Admitting Physician: Francois Deleon MD Primary Care Physician: Nieves Natarajan MD Attending Physician: Francois Deleon MD Diagnosis at Time of Discharge Diagnosis at Time of Discharge 1. Acute Chest pain with possible Unstable Angina. Present on admission. Resolved. 2. Benign Prostatic Hypertrophy. Chronic. 3. Depression. Chronic. Stable. 4. Paraplegia, incomplete. Chronic. Consultations Cardiology, Dr. Nava Procedures XRay, CTs & MRIs X-RAY CHEST ONE VIEW, PORTABLE 11/09 IMPRESSION: No acute cardiopulmonary disease. Dictated by: Heide Peters M.D. on 11/09/2016 at 19:26 Approved by: Heide Peters M.D. on 11/09/2016 at 19:27 Cardiac Echo Impression Echocardiogram Report Interpretation Summary The left ventricle is normal in size. The ejection fraction is estimated to be 60-65%. The right ventricle is normal in size and function. No significant valvular pathology seen. Reading Physician:DEDRA Invasive Procedures Heart Cath: HEMODYNAMICS: LV systolic pressure was 121 mmHg. Aortic pressure 121/71 mmHg. There was no significant pullback gradient between the aorta and left ventricle. LVEDP was about 18 mmHg. LEFT VENTRICULOGRAPHY: Left ventriculography was not performed. On 2D echo the patient has preserved LV function. 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 The left main and LAD appears to be same vessel. LAD is a tortuous vessel. There is no significant coronary artery disease seen in the left side coronary artery circulation. Right coronary artery: The right coronary artery is a large dominant artery and was free of any significant disease. Left circumflex artery: The left circumflex artery arises from the right coronary cusp through separate ostium and it is a nondominant vessel and was free of any significant disease. Leo Nava MD 11/10/16 1412 Brief History Per admitting physician Francois Deleon MD: Mj Hood is a 51 year old paraplegic male with BPH, Depression presenting to the emergency department via EMS complaining of resolved chest pain that began 8 hours ago. Pt was at [employer] when he developed sudden-onset, mid sternal chest pressure associated with lightheadedness. Denies any associated symptoms like diaphoresis, nausea, vomiting. Episode resolved after 10-15 minutes and has not returned since. No similar episode prior. 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 He is able to walk but with a walker, right foot is unstable. Case discussed with Dr Mckeon. EKG showed no ischemia. Due to persistent chest pain, Heparin drip was initiated. Dr Mckeon spoke to Dr Olivo who recommended admission. Hospital Course Mj Hood is a 51 year old paraplegic male with BPH, Depression presenting to the emergency department via EMS complaining of chest pain. 1. Acute Chest pain with possible Unstable Angina. Present on admission. Resolved. 51-year-old pleasant male with history of incomplete paraplegia due to ladder fall, depression, BPH, ex-smoker who presented to [facility] ED with chest pain. He ruled in for acute coronary syndrome with non ST-T NE based on abnormal serial CPK and troponin. He underwent left heart catheterization on which did not reveal any obvious atherosclerotic coronary artery disease. 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 No pressure dampening. No significant atherosclerotic plaque or focal narrowing of the anomalous circumflex or right coronary artery or LAD. On 2D echo, LV ejection fraction 60 %-65% with normal right ventricular function without any focal wall motion abnormalities without any significant valvular pathology or pericardial effusion. He had a lower extremity venous Doppler which was negative for DVT. D-dimer was normal. One of the possibility of vessel spasm, however, during telemetry monitoring, there were not any transient ST elevation and/or significant QTc prolongation. No any obvious atherosclerotic plaque. There was no any obvious explanation. At present, patient is at low risk. Patient is recommended to be on daily Aspirin, 81 mg and Lipitor, 20 mg. 2. Benign Prostatic Hypertrophy. Chronic. Stable Continue home medications. 3. Depression. Chronic. Stable. Continue home medications. 4. Paraplegia, incomplete, chronic. Continue home medication. Exam Vital Signs (Last) Date Time Temp Pulse Resp B/P Pulse Ox O2 Delivery O2 Flow Rate FiO2 11/11/16 06:20 36.7 63 20 110/73 96 Room Air Exam General: Alert, Oriented X3, Cooperative, No acute Distress Eyes: PERRLA, Scleral Anicteric Mouth: Mouth Normal, Mucous Membranes Moist/Dick[place] Neck: Supple, no Thyromegaly, trachea central. Chest & Lungs: Clear to auscultation & percussion, No adventitious breath sounds, no crackles, no wheeze Cardiovascular: Normal S1, Normal S2, No Murmurs/Rubs/Gallops, Regular Rate/ Rhythm, (No JVD, no peripheral edema) Pulses: Radial (present and equal), Dorsalis Pedi (present and equal) Abdomen: Soft, Non-tender, Non-distended, Normoactive bowel tones. Musculoskeletal: Unremarkable. Normal range of motion, no swollen or erythematous joints Extremities: No edema, no cyanosis, no clubbing. Skin: No rashes. Warm and dry, no erythematous areas Neurological: Grossly neurologically intact, Normal Speech, Sensation Intact Lymphatic: Lymph nodes Cervical and Axillary not palpable. Test 11/09/16 18:37 11/09/16 19:29 11/09/16 20:12 11/10/16 01:36 Prothrombin Time 10.3sec (8.1-12.5) Prothromb Time International Ratio 0.96ratio Hold Purple Top Tube Received (Received) Hold Red Top Tube Received (Received) Hold [place] Top Tube Received (Received) Hold [place] Top Tube Received (Received) Hemoglobin A1c 5.0% (4.8-5.6) Magnesium Level 2.1mg/dL (1.6-2.6) Total Creatine Kinase 463U/L (21-232) Creatine Kinase MB 9.3ng/mL (0.0-10.4) Creatine Kinase MB % 2.0% (0.0-5.0) Test 11/10/16 06:25 11/10/16 08:50 11/10/16 19:43 11/11/16 06:10 Triglycerides Level 198mg/dL (0-149) Cholesterol Level 194mg/dL (100-199) LDL Cholesterol, Calculated 120.400mg/dL (0-99) VLDL Cholesterol 39.600mg/dL HDL Cholesterol 34mg/dL (>39) Cholesterol/HDL Ratio 5.71 (0.0-4.4) D-Dimer < 0.5mg/L (<0.50) Troponin T 0.051ug/L (0.0-0.011) Activated Partial Thromboplast Time 28.9sec (22.8-33.0) Hold Blue Top Tube Received (Received) White Blood Count 5.6th/mm3 (3.8-10.1) Red Blood Count 4.57mil/mm3 (4.40-5.80) Hemoglobin 14.3g/dL (13.8-17.2) Hematocrit 41.2% (41.0-50.0) Mean Corpuscular Volume 90.2fL (81-100) Mean Corpuscular Hemoglobin 31.3pg (27.0-35.0) Mean Corpuscular Hemoglobin Concent 34.7% (32.0-37.0) Red Cell Distribution Width 14.2% (12.3-15.4) Platelet Count 151bil/L (150-400) Neutrophils (%) (Auto) 55.3% (40-74) Lymphocytes (%) (Auto) 30.5% (14-46) Monocytes (%) (Auto) 11.8% (4-12) Eosinophils (%) (Auto) 2.0% (0-5) Basophils (%) (Auto) 0.2% (0-3) Sodium Level 144mEq/L (134-144) Potassium Level 4.1mEq/L (3.5-5.2) Chloride Level 105mEq/L (97-108) Carbon Dioxide Level 25mmol/L (18-29) Blood Urea Nitrogen 17mg/dL (6-24) Creatinine 0.88mg/dL (0.76-1.27) Estimat Glomerular Filtration Rate 97mL/min (>59) Glucose Level 106mg/dL (60-99) Calcium Level 9.0mg/dL (8.5-10.1) Total Bilirubin 0.6mg/dL (0.0-1.2) Aspartate Amino Transf (AST/SGOT) 29U/L (0-50) Alanine Aminotransferase (ALT/SGPT) 45U/L (0-44) Alkaline Phosphatase 120U/L (25-150) Total Protein 6.7g/dL (6.4-8.4) Albumin 4.2g/dL (3.4-5.0) Discharge Medications Discharge Medications Aspirin (Aspirin) 81 Mg Tablet 81 MG PO DAILY Prescribed by: KRISHNA RUGGIERO DO Atorvastatin (Lipitor) 20 Mg Tablet 20 MG PO DAILY Prescribed by: KRISHNA RUGGIERO DO Cyclobenzaprine (Cyclobenzaprine) 10 Mg Tablet 10 MG PO BID (Reported) Docusate Sodium (Colace) 100 Mg Capsule 200 MG PO QAM (Reported) Famotidine (Famotidine) 20 Mg Tablet 20 MG PO QAM (Reported) Finasteride (Finasteride) 5 Mg Tablet 5 MG PO QAM (Reported) Gabapentin (Gabapentin) 600 Mg Tablet 1,200 MG PO BID (Reported) 8AM & MIDNIGHT Gabapentin (Gabapentin) 600 Mg Tablet 600 MG PO DAILY (Reported) @ 4PM Mirtazapine (Mirtazapine) 45 Mg Tablet 45 MG PO HS (Reported) Multivitamin (Multi Vitamin Daily) 1 Each Tablet 1 EACH PO DAILY (Reported) Tamsulosin ER (Tamsulosin ER) 0.4 Mg Cap.er.24h 0.4 MG PO HS (Reported) Venlafaxine ER (Venlafaxine ER) 150 Mg Tab.er.24 150 MG PO QAM (Reported) As needed Ibuprofen (Ibuprofen) 400 Mg Tablet 400 MG PO Q4 PRN PRN For Pain (Reported) Additional med instructions 1. Take Aspirin, 81 mg daily. 2. Take Atorvastatin, 20 mg daily. Followup Plan Discharge Diet: Heart Healthy Discharge Activity: No restrictions Follow-up Provider: Nieves Natarajan MD Follow-up with PCP in: 2 weeks Time spent 35 minutes Attending Statement The patient was seen and examined together with Dr. Ruggiero on 11/11/2016 and I agree with the history, exam and plan as outlined in the note above. Krishna Ruggiero DO Nov 11, 2016 10:52 Natanael Reich MD Nov 11, 2016 13:36
--- NOTE | 2016-11-11 11:54 | NUR ---
Discharge pt ordered for discharge home. discharge instructions and medications reviewed with patient. pt stated plan for using community transit for ride home. pt escorted to elevator with all belongings and steady gait at about 1130.
== END 2016-11-11 11:30 | disposition home or self-care (01) ==
LOC: SED 19:15 → MPC 20:37 → INTOOBSV 20:37
PROVIDERS: ADMIT Hospitalist; ATTEND Hospitalist
DX: R07.9 Chest pain, unspecified (principal); R03.0 Elevated blood-pressure reading, without diagnosis of hypertension; R94.31 Abnormal electrocardiogram [ECG] [EKG]; R79.89 Other specified abnormal findings of blood chemistry; N40.0 Benign prostatic hyperplasia without lower urinary tract symptoms; F32.9 Major depressive disorder, single episode, unspecified; G82.22 Paraplegia, incomplete; Z87.891 Personal history of nicotine dependence
CPT/HCPCS: 36415; 71010; 80048; 80053; 80061; 82550; 82553; 83036; 83735; 84484; 85014; 85018; 85025; 85378; 85379; 85610; 85730; 93005; 93458; 93970; 96361; 96365; 96366; 99152; 99285; C1769; C8929; J1644; J2250; J3010; J7030; Q9957; Q9967